=== PATIENT | female | born 1965 | race Asian ===

== ENCOUNTER 2016-11-28 17:17 | Emergency (ER) | payer OTHER, MEDICAID ==
[~2016-11-28] VITALS: Ht 180.3 cm; Wt 68.0 kg
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
--- NOTE | 2016-11-28 17:33 | NUR ---
DR ANTOINE AT BEDSIDE FOR EVAL.
--- NOTE | 2016-11-28 17:50 | NUR ---
PT TO RADIOLOGY FOR HEAD, FACIAL AND C SPINE CT AND LK KNEE XRAY VIA [facility].
[2016-11-28] MEDS ORDERED: IBUPROFEN 600 MG TABLET PO ONE ×2 (19:30→19:36)
[2016-11-28 20:10] VITALS: BP 132/76
--- NOTE | 2016-11-28 20:10 | NUR ---
WOUND CARE PROVIDED. Patient discharged to home in stable condition. Written and verbal after care instructions given. Patient verbalizes understanding of instruction.
== END 2016-11-28 20:11 | disposition home or self-care (01) ==
LOC: ER 17:18
DX: S00.83XA Contusion of other part of head, initial encounter (principal); S80.02XA Contusion of left knee, initial encounter; C78.7 Secondary malignant neoplasm of liver and intrahepatic bile duct; C79.31 Secondary malignant neoplasm of brain; C79.51 Secondary malignant neoplasm of bone; C50.919 Malignant neoplasm of unspecified site of unspecified female breast; W01.0XXA Fall on same level from slipping, tripping and stumbling without subsequent striking against object, initial encounter; Y92.89 Other specified places as the place of occurrence of the external cause; Y93.89 Activity, other specified; Y99.8 Other external cause status
CPT/HCPCS: 70450-TC; 70486-TC; 72125-TC; 73562; A4606; Z7610